=== PATIENT | female | born 1940 | race Caucasian/White ===

== ENCOUNTER → 2016-12-12 | Outpatient (CLI) | payer MEDICARE, BC ==
[~2016-12-12] MED LIST: ACCOLATE 220 MG/1 TA PO; ASPI325T6 PO; ASPIRIN E.C. 8181 MG PO; BRILINTA90 MG PO; CALCIUM600 MG PO; CATAPRES 0.1MG0.1 MG PO; CELEBREX 200MG200 MG PO; DICLOFENAC; FISH OIL1000 MG PO; FLEXERIL5 MG PO; FOLIC ACID 40400 MCG PO; FUROSEMIDE; IRON325 M1 PO; K-DUR 2020 MEQ PO; KLOR-CON M2020 MEQ PO; LASIX 40MG TABL40 MG PO; LEVOTHYROXINE0.1 MG PO; LEVOXYL0.075 MG PO; LIPITOR 40MG TA40 MG PO; LIPITOR 80MG80 MG PO; LOPRESSOR 550 MG/TAB PO; NITRO-DUR0.4 MG/PAT TD; NORCO 325 MG-7.1 TAB PO; NORVASC 10MG10 MG PO; PHENERGAN 25 TA25 MG PO; PLAVIX 75MG TAB75 MG PO; POTASSIUM595 MG PO; PRILOSEC 20MG20 MG PO; ROXICODONE 55 MG/TAB PO; SENOKOT8.6 MG PO; SINGULAIR 110 MG/TAB PO; TOPROL XL 25MG25 MG PO; ULTRAM 50MG TAB50 MG PO; VALIUM 5MG T5 MG/TAB PO; VERELAN240 MG PO; VICODIN 5/5001 UDTAB PO; VITAMIN C500 MG PO; VOLTAREN 75 DR75 MG PO; XARELTO10 MG PO; ZANTAC 150MG T150 MG PO; ZESTRIL2.5 MG PO; ZOFRAN 4MG T4 MG/TAB PO; ZYRTEC 10MG10 MG PO; blood pressure med
== END ==
LOC: MC.RAD 08:57
DX: Z12.31 Encounter for screening mammogram for malignant neoplasm of breast (principal)

== ENCOUNTER → 2018-08-14 | Outpatient (CLI) | payer MEDICARE, BC | LOC: MC.RAD 14:51 | DX: Z12.31 Encounter for screening mammogram for malignant neoplasm of breast (principal) ==

== ENCOUNTER → 2019-11-07 | Outpatient (CLI) | payer MEDICARE, BC | LOC: MC.RAD 09:58 | DX: Z12.31 Encounter for screening mammogram for malignant neoplasm of breast (principal) ==

== ENCOUNTER 2020-10-16 00:58 | Inpatient (IN) | payer MEDICARE, BC ==
[~2020-10-16] VITALS: Ht 165.1 cm; Wt 77.9 kg
[2020-10-16 01:57] LABS: BASO % 0.2 % (0.0-2.0); EOS % 0.1 % (0-4.0); GRAN # 7.2 (1.4-6.5); GRAN % 76.5 % (42.2-75.2); HEMATOCRIT 42.7 % (37.0-47.0); HEMOGLOBIN 14.5 g/dl (12.5-16.0); LYMPH # 0.9 (1.2-3.4); LYMPH % 9.8 % (20.0-51.0); MEAN CELL VOLUME 98 fl (80.0-100.0); MEAN CORPUSCULAR HEMOGLOBIN 33 pg (27.0-31.0); MEAN CORPUSCULAR HGB CONC 34 g/dl (33.0-37.0); MEAN PLATELET VOLUME 10.8 fl (7.4-10.4); MONO # 1.2 (0.1-0.6); MONO % 12.9 % (1.7-9.3); PLATELET COUNT 179 K/mm3 (130-400); RED BLOOD COUNT 4.38 M/mm3 (4.10-5.30); REDCELL DISTRIBUTION WIDTH-CV 13.5 % (11.5-14.5)
[2020-10-16 02:20] LABS: BILIRUBIN,TOTAL 0.7 mg/dL (0.0-1.0); CALCIUM 10.3 mg/dL (8.4-10.2); CREATININE, serum 1.25 (0.52-1.25); POTASSIUM 4.3 mmol/L (3.4-5.0); TOTAL PROTEIN 7.4 gm/dL (6.4-8.2)
[2020-10-16 02:38] LABS: C-REACTIVE PROTEIN 13.2 mg/dL (0.0-0.9)
[2020-10-16 02:41] LABS: TROPONIN-I 0.013 ng/mL (0.000-0.035)
[2020-10-16] MEDS ORDERED: TRICOR145 MG PO (03:13)
[2020-10-16] MEDS ORDERED: PEPCID 20MG TAB20 MG PO (03:13)
[2020-10-16] MEDS ORDERED: MELATONIN5 M1 SL (03:13)
[2020-10-16] MEDS ORDERED: ASPIRIN 81M81 MG/TA2 PO (03:14)
[2020-10-16] MEDS ORDERED: PHARMASSURE ZIN50 MG PO (03:17)
[2020-10-16] MEDS ORDERED: MASON NATURAL2000 IU PO (03:17)
[2020-10-16] MEDS ORDERED: ZYLOPRIM 100MG100 MG PO (03:18)
[2020-10-16] MEDS ORDERED: NORVASC 5MG5 MG/TAB PO (03:18)
[2020-10-16] MEDS ORDERED: LASIX 40MG TABL40 MG PO (03:18)
[2020-10-16] MEDS ORDERED: K-DUR20 MEQ PO (03:19)
[2020-10-16] MEDS ORDERED: PLAVIX 75MG TAB75 MG PO (03:20)
[2020-10-16] MEDS ORDERED: TOPROL XL200 MG PO (03:20)
[2020-10-16] MEDS ORDERED: LEVOXYL0.075 MG PO (03:20)
[2020-10-16] MEDS ORDERED: VITAMINC1000TA PO (03:21)
[2020-10-16] MEDS ORDERED: RANEXA 500MG T500 MG PO (03:21)
[2020-10-16] MEDS ORDERED: PRILOSEC 20MG20 MG PO (03:21)
[2020-10-16] MEDS ORDERED: LIPITOR 40MG TA40 MG PO (03:22)
[2020-10-16] MEDS ORDERED: CLARITIN 1010 MG/TAB PO (03:22)
[2020-10-16] MEDS ORDERED: AMBIEN 5MG TABLE5 MG PO (03:23)
[2020-10-16] MEDS ORDERED: ULTRAM 50MG TAB50 MG PO (03:23)
[2020-10-16] MEDS ORDERED: PHENERGAN 25 TA25 MG PO (03:23)
--- NOTE | 2020-10-16 05:30 | NUR ---
Patient came to the unit with shortness of breath. She is in 5 L oxymask and levels over 90%. She is able to use the comode but condition is worst on exertion. She will have an infection disease consult. Asked for Tylenol for general pain. Reports no nausea or vomiting but some diarrhea yesterday. No further needs right now. Call light within reach.
[2020-10-16 06:28] VITALS: BP 142/66; PULSE 84; TEMP 100.9
[2020-10-16 06:38] VITALS: BP 145/118; PULSE 78; TEMP 97.8
[2020-10-16 09:00] LABS: INR 1.3 (0.8-3.0)
[2020-10-16 09:03] LABS: PARTIAL THROMBOPLASTIN TIME 24.5 SECONDS (26.0-37.0)
--- NOTE | 2020-10-16 10:10 | NUR ---
The patient is COVID positive. SW contacted the patient to discuss discharge plan. The patient lives in [place] with her , Dereck (ph#[phone]), and their daughter, Merary. She reports independence with ADLs and does not have any DME. The patient's PCP is Dr. Charli Hall and she receives her medications at the [facility] in . She reports no difficulties obtaining her meds. The patient's DPOA-HC is in EMR and it designates her . The patient plans to return home with her and daughter upon discharge. SW to continue to monitor. *Discharge plan: home with family*
[2020-10-16 16:34] VITALS: BP 134/61; PULSE 64; TEMP 97.7
[2020-10-16 20:59] VITALS: BP 133/59; PULSE 60; TEMP 98
--- NOTE | 2020-10-16 22:26 | NUR ---
Patient is lying in bed, alert and oriented x 4, SOB on exertion. She is in Airvo at 30L O2. No complains of pain, nausea or vomiting. Change of gown was done. VSS. Reports some dryness in het throat and mouth. Lip moisture will be provided. No further needs at this time. Call light within reach.
[2020-10-17] VITALS (7 sets, daily range): BP systolic 117–152; BP diastolic 49–67; PULSE 61–69; TEMP 97.9–98.4
--- NOTE | 2020-10-17 06:51 | NUR ---
Patient has had a calm night, she continue with the Airvo at 55l/pm and 63% O2. She is able to go to the restroom and feels comfortable. Reports no pain, nausea or vomiting. No further needs at this time. Call light within reach. Shift report given to day nurse.
--- NOTE | 2020-10-17 07:45 | NUR ---
Pt. sitting up in chair, alert. Pt. able to answer questions and report concerns. Pt. given menu and telephone to order breakfast. Pt. denies pain. O2 sat 96% on 55L of oxygen.
--- NOTE | 2020-10-17 12:00 | NUR ---
This RN went in pt.'s room to check on her and she appeared distressed. Pt. reports she was taken back by the potential consequences of the COVID-[address] Rocha discussed with her. Supportive conversation and encouragement provided to the patient. This RN encouraged pt. to cough and deep breathe and use the incentive spirometer. Pt. used the incentive spirometer using the teachback method and acheived 1500. This RN encouraged the pt. to do the best she can and to continue to follow the plan of care and to take medications as prescribed. Pt. reports she feels supported with the encouragement. Pt. OOB independently and needs addressed. Call light and belongings within reach, safety maintained.
--- NOTE | 2020-10-17 21:15 | NUR ---
Patient is resting in bed, alert and oriented, reports no nausea, vomiting or pain. She is using the airvo at 45L and 55%O2, levels O2 between 91-96. Reports she is coughing sporadicaly. She is idependent and goes to restroom without problems. Change of linens and meds provided. No further needs at this time, call light within reach.
[2020-10-18 04:50] VITALS: BP 148/58; PULSE 60; TEMP 97.8
--- NOTE | 2020-10-18 05:32 | NUR ---
Patient has had a relatively calm night. Her cough was improving but when it comes it is too dry. She continues with airvo at 45L/min and 55% O2. Continue monitorig. Shift report will be give to the day nurse.
--- NOTE | 2020-10-18 07:16 | NUR ---
Report received from MARY Aguila. This RN opened door to let pt. know this RN would be with her again today, but pt. sleeping. Call light in reach.
[2020-10-18 07:30] VITALS: BP 156/56; PULSE 62; TEMP 97.7
--- NOTE | 2020-10-18 10:30 | NUR ---
Pt. progressing w/ plan of care. AM meds administered per EMAR. The respiratory therapist Melissa was in this AM to assess pt. and the patient's supplemental oxygen was able to be titrated down to 45L, 55% O2. Pt. reports she is feeling OK, she reports it takes a longer amount of time to recooperate after ambulating to the bathroom but O2 sat levels remain above 90%. Pt. continues to appear discouraged at times, positive conversation and encouragement provided. All other needs addressed, call light in reach and safety maintained.
[2020-10-18 11:29] LABS: BASO % 0.1 % (0.0-2.0); GRAN # 11.1 (1.4-6.5); GRAN % 87.3 % (42.2-75.2); HEMATOCRIT 40.6 % (37.0-47.0); LYMPH # 0.6 (1.2-3.4); LYMPH % 4.9 % (20.0-51.0); MEAN CELL VOLUME 96 fl (80.0-100.0); MEAN CORPUSCULAR HEMOGLOBIN 33 pg (27.0-31.0); MEAN CORPUSCULAR HGB CONC 35 g/dl (33.0-37.0); MEAN PLATELET VOLUME 10.9 fl (7.4-10.4); MONO # 0.9 (0.1-0.6); MONO % 7.1 % (1.7-9.3); PLATELET COUNT 268 K/mm3 (130-400); RED BLOOD COUNT 4.24 M/mm3 (4.10-5.30); REDCELL DISTRIBUTION WIDTH-CV 13.7 % (11.5-14.5)
[2020-10-18 11:30] VITALS: BP 138/53; PULSE 60; TEMP 97.8
[2020-10-18 11:39] LABS: CALCIUM 10.4 mg/dL (8.4-10.2); CREATININE, serum 1.38 (0.52-1.25); MAGNESIUM 1.9 mg/dL (1.6-2.3); POTASSIUM 4.8 mmol/L (3.4-5.0)
[2020-10-18 16:11] VITALS: BP 149/58; PULSE 61; TEMP 97.8
--- NOTE | 2020-10-18 16:53 | NUR ---
The mobile equipment mechanic and this RN have been experiencing difficulty with placing IVs and getting lab work on the patient. An IV was placed yesterday and pt. reported pain and irritation. New IV placed today by charge nurse, Joe. Pt. has limited IV access and this RN called Dr. Cerna to make him aware pt. may need a different type of IV access if the challenges with obtaining blood and IVs persists. Dr. Cerna made aware on the phone, no changes at this time.
[2020-10-18 20:05] VITALS: BP 129/55; PULSE 62; TEMP 98.4
[2020-10-19 00:10] VITALS: BP 158/59; PULSE 64; TEMP 98
[2020-10-19 03:20] VITALS: BP 140/62; PULSE 91; TEMP 98.7
--- NOTE | 2020-10-19 05:11 | NUR ---
Awake, alert, oriented x 4, able to make all needs known, ambulates in room w/o difficulty, wearing AirVo and tolerating well, denies pain, VS stable, 1500ml fluid restriction observed, will continue to monitor.
[2020-10-19 08:04] LABS: BASO % 0.1 % (0.0-2.0); GRAN # 9.6 (1.4-6.5); GRAN % 82.6 % (42.2-75.2); HEMATOCRIT 42.1 % (37.0-47.0); HEMOGLOBIN 14.7 g/dl (12.5-16.0); LYMPH # 0.8 (1.2-3.4); LYMPH % 6.7 % (20.0-51.0); MEAN CELL VOLUME 97 fl (80.0-100.0); MEAN CORPUSCULAR HEMOGLOBIN 34 pg (27.0-31.0); MEAN CORPUSCULAR HGB CONC 35 g/dl (33.0-37.0); MEAN PLATELET VOLUME 10.7 fl (7.4-10.4); MONO # 1.2 (0.1-0.6); MONO % 9.9 % (1.7-9.3); PLATELET COUNT 290 K/mm3 (130-400); RED BLOOD COUNT 4.36 M/mm3 (4.10-5.30); REDCELL DISTRIBUTION WIDTH-CV 13.7 % (11.5-14.5)
[2020-10-19 08:05] VITALS: BP 142/54; PULSE 61; TEMP 98.3
[2020-10-19 08:36] LABS: CALCIUM 10.4 mg/dL (8.4-10.2); CREATININE, serum 1.63 (0.52-1.25); POTASSIUM 4.6 mmol/L (3.4-5.0)
[2020-10-19 11:46] VITALS: BP 147/58; PULSE 60; TEMP 97.9
--- NOTE | 2020-10-19 13:38 | NUR ---
The patient is currently requiring 25 liters of oxygen via high flow cannula. SW to continue to monitor.
[2020-10-19 16:08] VITALS: BP 131/66; PULSE 62; TEMP 98.2
[2020-10-19 20:05] VITALS: BP 137/61; PULSE 63; TEMP 98.3
--- NOTE | 2020-10-19 22:35 | NUR ---
Alert, oriented x 4, able to make needs known, patient verbalizes concerns of anxiety/ saddness re: not getting better quicker and increased O2 demands, encouragement offered, fluid restriction observed, no acute distress noted at this time, call shivani w/i raymundo.
[2020-10-20 00:30] VITALS: BP 147/55; PULSE 62; TEMP 97.8
[2020-10-20 03:52] VITALS: BP 162/59; PULSE 62; TEMP 98
[2020-10-20 08:10] LABS: BASO % 0.1 % (0.0-2.0); GRAN # 11.2 (1.4-6.5); GRAN % 83.1 % (42.2-75.2); HEMATOCRIT 41.6 % (37.0-47.0); HEMOGLOBIN 14.1 g/dl (12.5-16.0); LYMPH # 0.7 (1.2-3.4); LYMPH % 5.3 % (20.0-51.0); MEAN CELL VOLUME 97 fl (80.0-100.0); MEAN CORPUSCULAR HEMOGLOBIN 33 pg (27.0-31.0); MEAN CORPUSCULAR HGB CONC 34 g/dl (33.0-37.0); MEAN PLATELET VOLUME 10.9 fl (7.4-10.4); MONO # 1.4 (0.1-0.6); MONO % 10.7 % (1.7-9.3); PLATELET COUNT 297 K/mm3 (130-400); RED BLOOD COUNT 4.31 M/mm3 (4.10-5.30); REDCELL DISTRIBUTION WIDTH-CV 13.6 % (11.5-14.5)
[2020-10-20 08:15] LABS: CREATININE, serum 1.59 (0.52-1.25); POTASSIUM 4.5 mmol/L (3.4-5.0)
[2020-10-20 08:21] VITALS: BP 157/72; PULSE 67; TEMP 97.7
[2020-10-20 11:50] VITALS: BP 139/60; PULSE 60; TEMP 98
--- NOTE | 2020-10-20 14:36 | NUR ---
Pt assessment completed and charted, meds administered per may. Pt denies pain, dizziness, N/V/D, chest pain, abd pain. Pt states she has a decrease in appetite but is eating some. Pt c/o ringing in her ears because of the airvo, RT in this morning to assess, airvo titrated down from 40L to 30L, pt reassesed this afternoon, states she is feeling better, does still have some SOB. Pt denies any other concerns at this time. Call light within reach.
[2020-10-20 16:16] VITALS: BP 125/63; PULSE 60; TEMP 98.1
--- NOTE | 2020-10-20 17:01 | NUR ---
This nurse attempted to return phone call to family member Domitila for update, no answer, voicemail left. this nurse did speak to patients daughter and gave update.
[2020-10-20 19:48] VITALS: BP 129/54; PULSE 64; TEMP 98.6
[2020-10-21] VITALS (7 sets, daily range): BP systolic 128–147; BP diastolic 52–71; PULSE 59–65; TEMP 97.9–968.2
--- NOTE | 2020-10-21 07:43 | NUR ---
Report recieved from MARY Willingham. Pt. resting in bed. This RN let pt. know this RN would be taking over for Tarsha for the day shift today. Pt. agreeable w/ plan, continuing to rest in bed at this time. Call light in reach.
[2020-10-21 08:24] LABS: CREATININE, serum 1.51 (0.52-1.25); POTASSIUM 4.6 mmol/L (3.4-5.0)
--- NOTE | 2020-10-21 09:14 | NUR ---
Pt. progressing w/ plan of care. Pt. hopeful that she is getting better. Lungs are clear throughout. Pt. continues to ambulate in room independently w/ steady gait. Airvo providing pt. oxygen, 30L at 66%. Pt. reports shortness of breath at times with ambulation. Pt. sitting up OOB in chair for her breakfast. Denies pain at this time.
--- NOTE | 2020-10-21 14:47 | NUR ---
MEAGHAN was informed that the patient's family reached out to [facility] in [place] and they are interested in [facility] for the patient. MEAGHAN notified the hospitalist. MEAGHAN contacted the patient's , Dereck, to follow up. The patient's daughter, Merary, answered the phone. Merary reports that they did reach out to [facility] and are interested in the patient going there. They understand the patient's oxygen needs are moving in the right direction, but they would like to go ahead and send a referral to [facility]. MEAGHAN contacted and faxed a referral to Devaughn at [facility]. Awaiting screen.
--- NOTE | 2020-10-21 19:21 | NUR ---
Pt. continues to progress w/ plan of care. Pt. was notified this RN will be going home and oncoming RN Bhumika will be taking over. REJI Gunn in room now to get vital signs. Call light & belonings in reach.
--- NOTE | 2020-10-22 01:16 | NUR ---
Assessment done and completed,alert and oriented get up by herself. Denies pain she's having SOB with exertion. Patient is on airvo at 30L at 60%. She requested Ambien before going to bed. She spent most of the time in reclining chair. VS are stable, no further complains noted. Call light is within reach. Will continue to monitor.
[2020-10-22 03:41] VITALS: BP 135/54; PULSE 63; TEMP 98
[2020-10-22 08:04] VITALS: BP 152/55; PULSE 61; TEMP 97.8
--- NOTE | 2020-10-22 09:45 | NUR ---
Pt. slowly progresing w/ plan of care. Dr. Rocha in to see pt this am to discuss possible plans of a transfer of care. At this moment, pt continues to take medications, ambulates independently, and OOB most of the day. Pt. denies questions and/or concerns at this time. Call light in reach.
[2020-10-22 12:08] VITALS: BP 133/68; PULSE 92; TEMP 98.2
[2020-10-22 12:27] VITALS: BP 127/58; PULSE 63; TEMP 97.6
[2020-10-22] MEDS ORDERED: RT Albuterol HFA MDI IH ×2 (12:30→12:31)
[2020-10-22] MEDS ORDERED: LOVENOX 4040 MG/0.4 SQ (12:31)
[2020-10-22] MEDS ORDERED: TYLENOL 325MG325 MG PO (12:31)
[2020-10-22] MEDS ORDERED: DECADRON6 MG PO (12:32)
[2020-10-22] MEDS ORDERED: GERI-TUSSI100 MG/5 M PO (12:32)
--- NOTE | 2020-10-22 12:40 | NUR ---
Plan for pt. to be transferred to [facility] in [place]. Pt. aware of plan. Pt. is to be transferred on the BIPAP but once she gets to [facility] hospital she is to resume back on airvo, BIPAP is only to be worn when pt. is en route to [facility]. [employer] Supervisor Ashwini working on getting a phone number so this RN can call the [facility] staff with a report.
--- NOTE | 2020-10-22 13:22 | NUR ---
Respiratory therapist Odette reports the pt. will be able to tolerate face mask 12L upon transportation instead of BIPAP.
--- NOTE | 2020-10-22 14:30 | NUR ---
Pt. en route to [facility]. Report Called to MARY Horowitz. Lor made aware pt. did not get afternoon dose of doxycycline. This RN also spoke to the pharmacist at [facility] and he was requesting if the AVS could be faxed so he could begin to work on pt.'s inpatient medications while the patient was en route. AVS was faxed. Pt. was discharged from [place] via [facility] to [facility] with 12L face mask. Vitals were stable upon transfer. This RN called back EMS staff to let them know the pt. will be going into room 710 and the phone number to reach [facility] was provided to them.
== END 2020-10-22 14:15 | DRG 177 ==
LOC: COL.ER 00:58 → MEDICAL 02:46
PROVIDERS: Emergency Medicine; Internal Medicine; Nurse Practitioner Family; Student in an Organized Health Care Education/Training Program; ADMIT Internal Medicine
PROC: XW033E5 Introduction of Remdesivir Anti-infective into Peripheral Vein, Percutaneous Approach, New Technology Group 5 (ICD-10-PCS; principal; 2020-10-17)
DX: U07.1 COVID-19 (principal); J12.82 Pneumonia due to coronavirus disease 2019; J96.01 Acute respiratory failure with hypoxia; N17.9 Acute kidney failure, unspecified; E03.9 Hypothyroidism, unspecified; I25.10 Atherosclerotic heart disease of native coronary artery without angina pectoris; E78.5 Hyperlipidemia, unspecified; Z66 Do not resuscitate; I11.0 Hypertensive heart disease with heart failure; I50.9 Heart failure, unspecified; Z96.653 Presence of artificial knee joint, bilateral; Z96.662 Presence of left artificial ankle joint; I25.2 Old myocardial infarction; Z95.818 Presence of other cardiac implants and grafts
CPT/HCPCS: 99232-AI; 99233-AI; 99239; A9284; J0696; J1100; J1650; J7030; J7050; J8540

== ENCOUNTER → 2021-07-07 | Outpatient (CLI) | payer MEDICARE, BC ==
[~2021-07-07] MED LIST changes: +AMBIEN 5MG TABLE5 MG PO; +ASPIRIN 81M81 MG/TA2 PO; +CLARITIN 1010 MG/TAB PO; +DECADRON6 MG PO; +GERI-TUSSI100 MG/5 M PO; +K-DUR20 MEQ PO; +LOVENOX 4040 MG/0.4 SQ; +MASON NATURAL2000 IU PO; +MELATONIN5 M1 SL; +NORVASC 5MG5 MG/TAB PO; +PEPCID 20MG TAB20 MG PO; +PHARMASSURE ZIN50 MG PO; +RANEXA 500MG T500 MG PO; +RT Albuterol HFA MDI IH; +TOPROL XL200 MG PO; +TRICOR145 MG PO; +TYLENOL 325MG325 MG PO; +VITAMINC1000TA PO; +ZYLOPRIM 100MG100 MG PO
== END ==
LOC: MC.RAD 13:24
DX: Z12.31 Encounter for screening mammogram for malignant neoplasm of breast (principal)

== ENCOUNTER → 2022-05-04 | Outpatient (CLI) | payer MEDICARE, BC | LOC: MHCPAIN 12:52 | DX: M47.896 Other spondylosis, lumbar region (principal); M54.17 Radiculopathy, lumbosacral region; M48.062 Spinal stenosis, lumbar region with neurogenic claudication; M54.81 Occipital neuralgia | CPT/HCPCS: G0463 ==

== ENCOUNTER → 2022-07-12 | Outpatient (CLI) | payer MEDICARE, BC | LOC: MHCPAIN 12:54 | DX: M54.81 Occipital neuralgia (principal); M54.2 Cervicalgia; M54.50 Low back pain, unspecified | CPT/HCPCS: G0463 ==

== ENCOUNTER → 2022-12-13 | Outpatient (CLI) | payer MEDICARE, BC | LOC: MHCPAIN 13:07 | DX: M47.816 Spondylosis without myelopathy or radiculopathy, lumbar region (principal); M48.061 Spinal stenosis, lumbar region without neurogenic claudication; M54.17 Radiculopathy, lumbosacral region; M54.81 Occipital neuralgia | CPT/HCPCS: G0463 ==

== ENCOUNTER → 2023-03-22 | Outpatient (CLI) | payer MEDICARE, BC | LOC: MHCPAIN 09:29 | DX: M47.896 Other spondylosis, lumbar region (principal); M48.062 Spinal stenosis, lumbar region with neurogenic claudication; M54.81 Occipital neuralgia | CPT/HCPCS: G0463 ==

== ENCOUNTER → 2023-05-16 | Outpatient (CLI) | payer MEDICARE, BC | LOC: MHCPAIN 09:03 | DX: M48.062 Spinal stenosis, lumbar region with neurogenic claudication (principal); M54.81 Occipital neuralgia | CPT/HCPCS: G0463 ==

== ENCOUNTER → 2023-11-07 | Outpatient (CLI) | payer MEDICARE, BC | LOC: MHCPAIN 10:50 | DX: M47.816 Spondylosis without myelopathy or radiculopathy, lumbar region (principal); M47.812 Spondylosis without myelopathy or radiculopathy, cervical region; M54.81 Occipital neuralgia; M48.062 Spinal stenosis, lumbar region with neurogenic claudication; I25.10 Atherosclerotic heart disease of native coronary artery without angina pectoris; Z79.01 Long term (current) use of anticoagulants | CPT/HCPCS: G0463 ==

== ENCOUNTER → 2023-12-07 | Outpatient (CLI) | payer MEDICARE, BC ==
[~2023-12-07] MED LIST changes: +Iohexol 300 - 10 ML VIAL ONE; +Lidocaine PF 2% (20 MG/ML) 2 ML VIAL ONE
== END ==
LOC: MHCPAIN 08:54
DX: M54.17 Radiculopathy, lumbosacral region (principal); M54.50 Low back pain, unspecified; M47.816 Spondylosis without myelopathy or radiculopathy, lumbar region; M48.061 Spinal stenosis, lumbar region without neurogenic claudication
CPT/HCPCS: J1100; Q9967

== ENCOUNTER → 2023-12-26 | Outpatient (CLI) | payer MEDICARE, BC ==
[~2023-12-26] MED LIST changes: -Iohexol 300 - 10 ML VIAL ONE; -Lidocaine PF 2% (20 MG/ML) 2 ML VIAL ONE
== END ==
LOC: MHCPAIN 10:56
DX: M48.062 Spinal stenosis, lumbar region with neurogenic claudication (principal); M54.81 Occipital neuralgia; G89.29 Other chronic pain
CPT/HCPCS: G0463

== ENCOUNTER → 2023-12-28 | Outpatient (CLI) | payer MEDICARE, BC | LOC: COL.RAD 10:37 | DX: M47.816 Spondylosis without myelopathy or radiculopathy, lumbar region (principal); M41.86 Other forms of scoliosis, lumbar region; I70.0 Atherosclerosis of aorta; M48.062 Spinal stenosis, lumbar region with neurogenic claudication ==